=== PATIENT | female | born 1935 | race Caucasian/White ===

== ENCOUNTER 2024-01-31 13:07 | Outpatient (AMB) | payer OTHER, MEDICAID, SELFPAY ==
[2024-01-31 13:22] VITALS: BP 171/95; PULSE 82; RESP 19; TEMP 36.6; O2SAT 97; BMI 35.9
--- NOTE | 2024-01-31 13:22 | ORTHONT_ITS ---
Vital signs 01/31/24 13:22 Height 1.52 m Height Method Stated Weight 83.518 kg Weight Measurement Method Standing Scale BMI 35.9 BP 171/95 H Blood Pressure Source Automatic Cuff Blood Pressure Location Left Upper Arm Position Sitting Respiration 19 Pulse 82 Pulse Source Monitor Temp 97.8 F Temp Source Temporal Artery Scan Pulse Oximetry (%) 97 Oxygen Delivery Method Room Air Med/Allergies Allergies & Medications Allergies No Known Allergies Allergy (Verified 01/31/24 13:23) Medication Reconciliation aspirin 81 mg tablet,delayed release (Adult Aspirin Regimen) 81 mg PO QDAY 01/31/24 [History Confirmed 01/31/24] diclofenac sodium 1 % topical gel (Arthritis Pain (diclofenac)) 2 g topical QID 01/31/24 [History Confirmed 01/31/24] losartan 50 mg tablet 50 mg PO QDAY 01/31/24 [History Confirmed 01/31/24] omega 7-ahb-myx-fish oil 100 mg-160 mg-1,000 mg capsule (Fish Oil) cap PO 01/31/24 [History Confirmed 01/31/24] simvastatin 40 mg tablet 40 mg PO QDAY 01/31/24 [History Confirmed 01/31/24] Subjective Visit Visit for: new patient and knee (LEFT) Immunization / Flu Flu Vaccine in the Last 12 Months: Yes Flu Vaccine Exclusion Criteria: Already Received History of Present Illness Chief complaint: LEFT KNEE PAIN PATIENT STATES FELL TWICE ON HER LEFT KNEE. FIRST FALL WAS JANUARY 2023 AND SECOND FALL ON MAY 2023. PATIENT STATES SHE GOT A KNEE INJECTION ON AUGUST 31, 2023 AND FEELS ITS STILL HELPING HER KNEE PAIN. STATES IT HASN'T WORN OFF. PATIENT has TRIED 12 SESSIONS OF PHYSICAL THERAPY HER PCP REFERRED HER. PATIENT HAS MEDICAL HISTORY OF HIGH BLOOD PRESSURE AND CHOLESTEROL AND IS TAKING MEDICATIONS Personal History Occupation: RETIRED Hobbies: NONE Pain Pain level (0-10): 0 Ambulatory data Ambulatory device: walker Treatments Number of previous injections: 1 Improvement with previous injections: Yes Number of Physical Therapy sessions: 12 Improvement with PT: No Improvement with NSAIDS: no Review of Systems Review of Systems: All systems negative unless otherwise noted in HPI. Exam Exam Patient is in no acute distress and is cooperative with the examination today. Breathing is nonlabored. Patient has a normal mood and affect. Bilateral extremities were evaluated and demonstrates sensation intact to light touch. Palpable pedal pulses are present. No significant edema is present. Bilateral hips were examined. The patient has no pain with log roll of the hips. Internal rotation to 30 degrees and external rotation to 30 degrees is painless. Negative FADIR. Right knee was examined today. The right knee is in reasonable alignment. Range of motion from 0-120 degrees. Knee is stable to varus and valgus as well as AP translation with <5mm. Patient has a negative McMurrays. There is no pain with patellofemoral compression and no crepitus noted. The knee is nontender to palpation. Left knee was examined today. The left knee is in [varus] alignment. Range of motion from [0-115] degrees. Knee is stable to varus and valgus as well as AP translation with <5mm. Patient has a [negative] McMurrays. There is [no] pain with patellofemoral compression and [no] crepitus noted. The knee is [tender] to palpation [medially]. X-rays from [facility] were reviewed by me today. This demonstrates bilateral joint space narrowing and osteophytes of significant severity. Assessment and Plan Problem List (1) Degenerative arthritis of knee, bilateral: Status: Acute Plan: Patient is a 88-year-old female with bilateral knee pain and bilateral knee arthritis. We discussed nonoperative and operative options. We will plan for cortisone injections as needed. She is still doing well with her last injection. Advanced Care Planning Discussion Advance care planning discussed with:: patient Office Procedures GNS Level of Care Nursing/Assessment Patient Status: Initial/New Patient Nursing Assessment/Reassesment: Medication Reconciliation, Update PMH in EMR and Vital Signs Coordination of Care: Complex Care and Chronic Disease 1-5, Education Complex Pt/Fam, Consent,records obtained, informed consent, 1 Ins Authorization, Lab and Imaging orders, Results/Orders obtained and Staff clarify orders New Patient Charge New Patient Point Assignment: 1124 New Patient Point Charge: PHARMACEUTICAL BOTANIST Level 4 (4510-2052) Past Medical History Past Medical History Have you ever been diagnosed with any of the following: Cardiology Problems Hypercholesterolemia: Yes Hypertension: Yes
== END 2024-01-31 13:55 | disposition home or self-care (01) ==
PROVIDERS: Supervising Provider Orthopaedic Surgery Adult Reconstructive Orthopaedic Surgery; Visit Provider Orthopaedic Surgery Adult Reconstructive Orthopaedic Surgery
DX: M17.0 Bilateral primary osteoarthritis of knee (principal); M25.562 Pain in left knee; M25.561 Pain in right knee; I10 Essential (primary) hypertension; E78.00 Pure hypercholesterolemia, unspecified
CPT/HCPCS: 99204; G0463